=== PATIENT | male | born 1940 | race Two or more races ===

== ENCOUNTER 2020-05-06 22:18 | Inpatient (IN) | payer MEDICARE ==
[~2020-05-06] VITALS: Ht 172.7 cm; Wt 66.4 kg
[2020-05-06] MEDS ORDERED: SODIUM CHLORIDE 0.9% 1,000 ML IV ONE (22:56)
[2020-05-07 00:11] LABS: CHLORIDE 94 mEq/L (98-107)
[2020-05-07 00:19] LABS: PROTHROMBIN TIME 10.7 sec (9.6-11.0)
[2020-05-07 00:27] LABS: BASOPHILS % 0.4 % (0.0-2.0); EOSINOPHILS % 0.1 % (0.0-5.0); HEMATOCRIT. 35.7 % (42.0-52.0); HEMOGLOBIN. 12.5 g/dL (14.0-18.0); LYMPHOCYTES % 10.5 % (20.0-50.0); MEAN CORPUSCULAR HEMOGLOBIN 30.1 pg (28.0-32.0); MEAN CORPUSCULAR VOLUME 85.7 fL (80.0-94.0); MEAN PLATELET VOLUME 8.4 fl (7.4-10.4); PLATELET 158 x1000/uL (130-400); RED BLOOD CELL COUNT 4.16 mill/uL (4.7-6.1); RED CELL DISTRIBUTION WIDTH 13.7 % (11.6-14.6)
[2020-05-07] MEDS ORDERED: VANCOMYCIN 1 G PREMIX 200 ML IV SCH (00:45)
[2020-05-07] MEDS ORDERED: SODIUM CHLORIDE 0.9% 1000ML BAG (SEPSIS BOLUS) IV ONE (00:45)
[2020-05-07] MEDS ORDERED: PIPERACILLIN/TAZ 3.375G PREMIX 50 ML IV SCH (01:00)
[2020-05-07 01:21] LABS: CLARITY URINE CLEAR (CLEAR); COLOR URINE YELLOW (YELLOW); KETONES URINE NEGATIVE (NEGATIVE); LEUKOCYTE ESTERASE URINE 1+ (NEGATIVE); NITRITE URINE NEGATIVE (NEGATIVE); OCCULT BLOOD URINE NEGATIVE (NEGATIVE); PROTEIN URINE NEGATIVE (NEGATIVE); SPECIFIC GRAVITY URINE 1.011 (1.005-1.030); UROBILINOGEN URINE 0.2 E.U./dL (0.2-1.0)
[2020-05-07 11:30] VITALS: BP 135/81
[2020-05-07] MEDS: ENOXAPARIN 40MG/0.4ML SYR SUBCUT SCH (14:01)
[2020-05-07] MEDS ORDERED: DUTA0.5C16 PO (14:24)
[2020-05-07] MEDS ORDERED: TAMS-11 PO (14:24)
[2020-05-07] MEDS ORDERED: METF-816 PO (14:25)
[2020-05-07] MEDS ORDERED: MEMA10TA55 PO (14:26)
[2020-05-07] MEDS ORDERED: CARB-33 PO (14:26)
[2020-05-07] MEDS ORDERED: HYDR12.54 PO (14:27)
[2020-05-07] MEDS ORDERED: LOSA50TA41 PO (14:28)
[2020-05-07] MEDS ORDERED: INSU100I28 SQ (14:28)
[2020-05-07] MEDS ORDERED: LORAZEPAM 2MG/ML CPJ IV PRN (15:15)
[2020-05-07] MEDS ORDERED: HYDRALAZINE 20MG/ML VIAL IV PRN (15:15)
[2020-05-07] MEDS ORDERED: MORPHINE SULFATE 2 MG/ML CPJ (NOT FOR IM USE) IV PRN (15:15)
[2020-05-07] MEDS ORDERED: ACETAMINOPHEN 325MG TABLET PO PRN (15:15)
[2020-05-07] MEDS ORDERED: LACTULOSE 20G/30ML UDC PO PRN (15:15)
[2020-05-07] MEDS ORDERED: DEXTROSE 50% WATER 50ML SYRINGE IV PRN (15:15)
[2020-05-07] MEDS ORDERED: ONDANSETRON HCL 4MG/2ML INJ IV PRN (15:15)
[2020-05-07] MEDS ORDERED: ACETAMINOPHEN 650MG SUPP PR PRN (15:15)
[2020-05-07] MEDS ORDERED: DIPHENHYDRAMINE 50MG/ML VIAL IV PRN (15:15)
[2020-05-07] MEDS ORDERED: IPRATROPIUM/ALBUTEROL 0.5-3(2.5)MG/3ML NEB HHN PRN (15:15)
[2020-05-07] MEDS ORDERED: CEFTRIAXONE 1,000 MG in DEXTROSE 5% WATER 50 ML IV SCH (16:00)
[2020-05-07 16:14] LABS: BASOPHILS % 0.3 % (0.0-2.0); EOSINOPHILS % 0.2 % (0.0-5.0); HEMOGLOBIN. 12.8 g/dL (14.0-18.0); LYMPHOCYTES % 14.1 % (20.0-50.0); MEAN CORPUSCULAR HEMOGLOBIN 30.3 pg (28.0-32.0); MEAN CORPUSCULAR VOLUME 85.4 fL (80.0-94.0); MEAN PLATELET VOLUME 7.9 fl (7.4-10.4); MONOCYTES % 6.8 % (2.0-8.0); NEUTROPHILS % 78.6 % (40.0-76.0); PLATELET 168 x1000/uL (130-400); RED BLOOD CELL COUNT 4.21 mill/uL (4.7-6.1); RED CELL DISTRIBUTION WIDTH 13.6 % (11.6-14.6)
[2020-05-07 16:24] LABS: CHLORIDE 103 mEq/L (98-107)
[2020-05-07 16:53] LABS: BG BASE EXCESS 0.6 mmol/L (-2.0-2.0); BG CARBOXYHEMOGLOBIN 0.3 % (0.5-1.5); BG DEOXYHEMOGLOBIN 5.5 % (0.0-5.0); BG FRACTION INSPIRED OXYGEN 21; BG HCO3 ACT 23.6 mmol/L (22.0-26.0); BG METHEMOGLOBIN 0.4 % (0.0-1.5); BG OXYGEN SATURATION 94.5 % (92.0-98.5); BG OXYHEMOGLOBIN 93.8 % (94.0-97.0); BG PCO2 33.1 mmHg (35.0-45.0); BG PH 7.471 (7.350-7.450); BG PO2 69.4 mmHg (75.0-100.0); BG SAMPLE SITE RIGHT RADIAL; BG TOTAL HEMOGLOBIN 13.5 g/dL (12.0-18.0); BG VENT MODE ROOM AIR
[2020-05-07] MEDS: SODIUM CHLORIDE 0.9% 1,000 ML IV SCH (16:53)
[2020-05-07] MEDS ORDERED: MEROPENEM 1,000 MG in SODIUM CHLORIDE 0.9% 100 ML IV SCH (17:00)
[2020-05-07] MEDS: CEFTRIAXONE 1,000 MG in DEXTROSE 5% WATER 50 ML IV SCH (17:11)
[2020-05-07] MEDS: BLOOD SUGAR DIAGNOSTIC STRIP TEST SCH ×2 (17:29→20:16)
[2020-05-07] MEDS: INSULIN LISPRO 100 UNITS/ML SUBCUT SCH ×2 (17:39→20:17)
[2020-05-07] MEDS: FLUCONAZOLE 200 MG/100ML BAG 100 ML IV SCH (18:30)
[2020-05-07] MEDS: AZITHROMYCIN 500 MG in DEXT 5% WATER 250 ML IV SCH (20:09)
[2020-05-07] MEDS: FAMOTIDINE 20MG TABLET PO SCH (20:16)
[2020-05-07 20:19] VITALS: BP 136/59
[2020-05-07 23:41] VITALS: BP 139/84
[2020-05-08 04:00] VITALS: BP 146/79
[2020-05-08] MEDS: SODIUM CHLORIDE 0.9% 1,000 ML IV SCH ×2 (04:39→11:15)
[2020-05-08] MEDS: BLOOD SUGAR DIAGNOSTIC STRIP TEST SCH ×4 (07:21→20:09)
[2020-05-08 07:23] LABS: HEMATOCRIT. 34.3 % (42.0-52.0); HEMOGLOBIN. 12.3 g/dL (14.0-18.0); MEAN CORPUSCULAR HEMOGLOBIN 30.5 pg (28.0-32.0); PLATELET 181 x1000/uL (130-400); RED BLOOD CELL COUNT 4.04 mill/uL (4.7-6.1); RED CELL DISTRIBUTION WIDTH 13.3 % (11.6-14.6)
[2020-05-08 07:24] LABS: CHLORIDE 104 mEq/L (98-107)
[2020-05-08 08:00] VITALS: BP 123/61
[2020-05-08] MEDS: ENOXAPARIN 40MG/0.4ML SYR SUBCUT SCH (08:45)
[2020-05-08] MEDS: INSULIN LISPRO 100 UNITS/ML SUBCUT SCH ×4 (08:46→20:09)
[2020-05-08] MEDS ORDERED: POTASSIUM CHLORIDE 20MEQ TABLET SR PO NR (09:30)
[2020-05-08 11:31] LABS: PLATELET ESTIMATE NORMAL
[2020-05-08 12:00] VITALS: BP 136/80
[2020-05-08] MEDS: CEFTRIAXONE 1,000 MG in DEXTROSE 5% WATER 50 ML IV SCH (15:57)
[2020-05-08 16:00] VITALS: BP 96/57
[2020-05-08] MEDS: FLUCONAZOLE 200 MG/100ML BAG 100 ML IV SCH (16:44)
[2020-05-08] MEDS: AZITHROMYCIN 500 MG in DEXT 5% WATER 250 ML IV SCH (17:30)
[2020-05-08 20:00] VITALS: BP 148/82
[2020-05-08] MEDS: FAMOTIDINE 20MG TABLET PO SCH (20:09)
[2020-05-08] MEDS: DEXAMETHASONE 4MG/ML 1ML VIAL IV SCH (22:45)
[2020-05-08] MEDS ORDERED: DEXAMETHASONE 4MG/ML 1ML VIAL IV SCH (23:15)
[2020-05-08] MEDS: ENOXAPARIN 80MG/0.8ML SYR SUBCUT SCH (23:20)
[2020-05-09] VITALS: BP 140/79
[2020-05-09 04:00] VITALS: BP 138/78
[2020-05-09 07:41] LABS: BASOPHILS % 0.3 % (0.0-2.0); HEMOGLOBIN. 13.1 g/dL (14.0-18.0); LYMPHOCYTES % 10.1 % (20.0-50.0); MEAN CORPUSCULAR HEMOGLOBIN 30.1 pg (28.0-32.0); MEAN PLATELET VOLUME 8.1 fl (7.4-10.4); MONOCYTES % 2.9 % (2.0-8.0); NEUTROPHILS % 86.7 % (40.0-76.0); PLATELET 227 x1000/uL (130-400); RED BLOOD CELL COUNT 4.35 mill/uL (4.7-6.1); RED CELL DISTRIBUTION WIDTH 13.2 % (11.6-14.6)
[2020-05-09 08:00] VITALS: BP 126/76
[2020-05-09 08:03] LABS: CHLORIDE 106 mEq/L (98-107)
[2020-05-09] MEDS: DEXAMETHASONE 4MG/ML 1ML VIAL IV SCH (08:12)
[2020-05-09] MEDS: BLOOD SUGAR DIAGNOSTIC STRIP TEST SCH ×4 (08:12→20:55)
[2020-05-09] MEDS: INSULIN LISPRO 100 UNITS/ML SUBCUT SCH ×4 (08:16→20:55)
[2020-05-09] MEDS: SODIUM CHLORIDE 0.9% 1,000 ML IV SCH (08:17)
[2020-05-09] MEDS: ENOXAPARIN 80MG/0.8ML SYR SUBCUT SCH ×2 (11:19→20:54)
[2020-05-09 12:00] VITALS: BP 133/78
[2020-05-09 16:00] VITALS: BP 137/77
[2020-05-09] MEDS: CEFTRIAXONE 1,000 MG in DEXTROSE 5% WATER 50 ML IV SCH (16:33)
[2020-05-09] MEDS: AZITHROMYCIN 500 MG in DEXT 5% WATER 250 ML IV SCH (17:14)
[2020-05-09] MEDS: FLUCONAZOLE 200 MG/100ML BAG 100 ML IV SCH (17:15)
[2020-05-09] MEDS ORDERED: INSULIN LISPRO 100 UNITS/ML SUBCUT NR (18:30)
[2020-05-09 20:00] VITALS: BP 146/82
[2020-05-09] MEDS: FAMOTIDINE 20MG TABLET PO SCH (20:54)
[2020-05-09] MEDS ORDERED: INSULIN GLARGINE UD 100 UNITS/ML SYR SUBCUT NR (22:00)
[2020-05-09] MEDS: MEROPENEM 500 MG in SODIUM CHLORIDE 0.9% 50 ML IV SCH (22:22)
[2020-05-10] VITALS: BP 125/66
[2020-05-10] MEDS: SODIUM CHLORIDE 0.9% 1,000 ML IV SCH (02:41)
[2020-05-10 04:00] VITALS: BP 132/70
[2020-05-10] MEDS: MEROPENEM 500 MG in SODIUM CHLORIDE 0.9% 50 ML IV SCH ×3 (06:32→21:00)
[2020-05-10] MEDS: BLOOD SUGAR DIAGNOSTIC STRIP TEST SCH ×4 (06:33→20:58)
[2020-05-10 08:00] VITALS: BP 138/75
[2020-05-10] MEDS: INSULIN LISPRO 100 UNITS/ML SUBCUT SCH ×4 (08:15→20:58)
[2020-05-10] MEDS: DEXAMETHASONE 4MG/ML 1ML VIAL IV SCH (08:17)
[2020-05-10] MEDS ORDERED: INSULIN GLARGINE UD 100 UNITS/ML SYR SUBCUT SCH ×2 (10:00→22:00)
[2020-05-10] MEDS: ENOXAPARIN 80MG/0.8ML SYR SUBCUT SCH ×2 (10:49→23:51)
[2020-05-10 12:00] VITALS: BP 118/52
[2020-05-10 13:14] LABS: BG BASE EXCESS -4.5 mmol/L (-2.0-2.0); BG CARBOXYHEMOGLOBIN 0.3 % (0.5-1.5); BG DEOXYHEMOGLOBIN 6.1 % (0.0-5.0); BG FRACTION INSPIRED OXYGEN 21; BG HCO3 ACT 17.9 mmol/L (22.0-26.0); BG METHEMOGLOBIN 0.3 % (0.0-1.5); BG OXYGEN SATURATION 93.9 % (92.0-98.5); BG OXYHEMOGLOBIN 93.3 % (94.0-97.0); BG PCO2 27.4 mmHg (35.0-45.0); BG PH 7.433 (7.350-7.450); BG SAMPLE SITE LEFT BRACHIAL; BG TOTAL HEMOGLOBIN 16.7 g/dL (12.0-18.0); BG VENT MODE ROOM AIR
[2020-05-10 16:00] VITALS: BP 125/72
[2020-05-10] MEDS: FLUCONAZOLE 200 MG/100ML BAG 100 ML IV SCH (18:09)
[2020-05-10] MEDS: AZITHROMYCIN 500 MG in DEXT 5% WATER 250 ML IV SCH (18:09)
[2020-05-10 19:05] LABS: HEMATOCRIT. 35.4 % (42.0-52.0); HEMOGLOBIN. 12.3 g/dL (14.0-18.0); MEAN CORPUSCULAR HEMOGLOBIN 29.6 pg (28.0-32.0); MEAN CORPUSCULAR VOLUME 85.2 fL (80.0-94.0); MEAN PLATELET VOLUME 8.2 fl (7.4-10.4); PLATELET 308 x1000/uL (130-400); RED BLOOD CELL COUNT 4.15 mill/uL (4.7-6.1); RED CELL DISTRIBUTION WIDTH 13.4 % (11.6-14.6)
[2020-05-10 19:11] LABS: CHLORIDE 111 mEq/L (98-107)
[2020-05-10 19:26] LABS: PLATELET ESTIMATE NORMAL
[2020-05-10 20:00] VITALS: BP 157/83
[2020-05-10] MEDS: FAMOTIDINE 20MG TABLET PO SCH (20:57)
[2020-05-10] MEDS: INSULIN GLARGINE UD 100 UNITS/ML SYR SUBCUT SCH (21:07)
[2020-05-11] VITALS: BP 116/64
[2020-05-11 04:00] VITALS: BP 147/78
[2020-05-11] MEDS: MEROPENEM 500 MG in SODIUM CHLORIDE 0.9% 50 ML IV SCH ×2 (05:42→14:00)
[2020-05-11 06:59] LABS: HEMATOCRIT. 34.1 % (42.0-52.0); HEMOGLOBIN. 11.9 g/dL (14.0-18.0); MEAN CORPUSCULAR HEMOGLOBIN 29.8 pg (28.0-32.0); MEAN CORPUSCULAR VOLUME 85.4 fL (80.0-94.0); MEAN PLATELET VOLUME 7.9 fl (7.4-10.4); PLATELET 314 x1000/uL (130-400); RED BLOOD CELL COUNT 3.99 mill/uL (4.7-6.1); RED CELL DISTRIBUTION WIDTH 13.3 % (11.6-14.6)
[2020-05-11 07:00] LABS: CHLORIDE 111 mEq/L (98-107)
[2020-05-11] MEDS: BLOOD SUGAR DIAGNOSTIC STRIP TEST SCH ×2 (07:40→12:21)
[2020-05-11 08:00] VITALS: BP 137/74
[2020-05-11] MEDS: INSULIN LISPRO 100 UNITS/ML SUBCUT SCH ×2 (08:10→12:42)
[2020-05-11] MEDS: DEXAMETHASONE 4MG/ML 1ML VIAL IV SCH (08:32)
[2020-05-11] MEDS: INSULIN GLARGINE UD 100 UNITS/ML SYR SUBCUT SCH (09:34)
[2020-05-11] MEDS: ENOXAPARIN 80MG/0.8ML SYR SUBCUT SCH (10:22)
[2020-05-11 11:18] LABS: BG BASE EXCESS -1.4 mmol/L (-2.0-2.0); BG CARBOXYHEMOGLOBIN 0.3 % (0.5-1.5); BG DEOXYHEMOGLOBIN 5.5 % (0.0-5.0); BG FRACTION INSPIRED OXYGEN 21; BG HCO3 ACT 20.9 mmol/L (22.0-26.0); BG METHEMOGLOBIN 0.3 % (0.0-1.5); BG OXYGEN SATURATION 94.5 % (92.0-98.5); BG OXYHEMOGLOBIN 93.9 % (94.0-97.0); BG PCO2 28.4 mmHg (35.0-45.0); BG PH 7.485 (7.350-7.450); BG PO2 70.9 mmHg (75.0-100.0); BG SAMPLE SITE LEFT RADIAL; BG TOTAL HEMOGLOBIN 12.9 g/dL (12.0-18.0); BG VENT MODE ROOM AIR
[2020-05-11 12:00] VITALS: BP 155/77
[2020-05-11 16:00] VITALS: BP 154/86
[2020-05-11] MEDS ORDERED: APIXABAN 5 MG TABLET PO SCH (17:00)
[2020-05-11 17:16] VITALS: BP 154/86
[2020-05-12 13:09] LABS: PLATELET ESTIMATE NORMAL
== END 2020-05-11 18:12 | DRG 177 ==
LOC: ER 22:18 → 8WST 05-07 01:54 → EDBEDREQ 05-07 02:00 → ENRESERV 05-07 10:02 → 7WST 05-07 18:19
PROVIDERS: ADMIT Internal Medicine; ATTEND Internal Medicine
DX: U07.1 COVID-19 (principal); G93.41 Metabolic encephalopathy; J12.89 Other viral pneumonia; E87.1 Hypo-osmolality and hyponatremia; E87.2 Acidosis; N39.0 Urinary tract infection, site not specified; Z16.12 Extended spectrum beta lactamase (ESBL) resistance; N13.9 Obstructive and reflux uropathy, unspecified; D64.9 Anemia, unspecified; E11.65 Type 2 diabetes mellitus with hyperglycemia; E83.51 Hypocalcemia; B96.4 Proteus (mirabilis) (morganii) as the cause of diseases classified elsewhere; I10 Essential (primary) hypertension; N40.0 Benign prostatic hyperplasia without lower urinary tract symptoms; E78.00 Pure hypercholesterolemia, unspecified; Z79.4 Long term (current) use of insulin; Z79.899 Other long term (current) drug therapy
CPT/HCPCS: 36415; 36600; 71045; 80048; 80053; 81003; 82270; 82375; 82805; 82962; 83036; 83605; 83880; 84145; 84153; 84484; 85007; 85025; 85027; 85379; 87015; 87045; 87077; 87186; 87427; 87449; 87493; 89055; 93005; 99291; J0456; J0696; J1100; J1450; J1650; J1815; J2185; J2543; J3370; J7030; J7050; J7060; G0103; U0003-CS